=== PATIENT | male | born 1985 | race Caucasian/White ===

== ENCOUNTER 2016-12-23 22:46 | Emergency (ER) | payer OTHER ==
[~2016-12-23] VITALS: Ht 175.3 cm; Wt 77.3 kg
[~2016-12-23 22:46] MED LIST: CEPH500T PO; HYDR25CA PO; NOMED
[2016-12-23 22:54] VITALS: BP 160/100; PULSE 77; RESP 18; O2SAT 99
--- NOTE | 2016-12-23 23:11 | ED.REPORT ---
HPI-Dental/Mouth Prob Date of Service Dec 23, 2016 ED Provider: Mick Sin MD The patient is a 31 year old male who presents to the ED due to sever, intermittent, right, upper dental pain for the past month. He confirms warmth and pain throughout right face. He has not been able to sleep due to pain. He tried to get seen by [facility] with no luck. Pt denies fever. 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 Nursing Notes Stated Complaint: TOOTH PAIN Chief Complaint: Dental Nursing Notes Reviewed: Yes Allergies: Coded Allergies: Sulfa (Sulfonamide Antibiotics) (Verified Allergy, Unknown, 05/15/16) Scheduled Cephalexin (Cephalexin) 500 Mg Tablet 500 MG PO QID Scheduled PRN Hydroxyzine Pamoate (Vistaril) 25 Mg Capsule 25 MG PO TID PRN PRN For Anxiety or Agitation Miscellaneous Medications No Historical Medication (No Historical Medication) Ea General Time Seen by MD: 23:10 Chief Complaint Tooth pain Hx Obtained From: Patient Arrived By: Walk-in Onset Occurred: 3 days ago Symptom Duration: Since onset Location: : Tooth upper R molar Quality: Painful Radiation: : Face Severity: Current: Severe Past Medical History Past Medical History Notes: No PCP Past Medical History Crohn's (suspected, no formal diagnosis) IV drug use Reports: Asthma Past Surgical History Reports: Appendectomy Family History Noncontributory Smoking History Current Every Day Smoker Social History Alcohol Use: Denies alcohol use Drug Use: In recovery Other Social History: Local resident Ambulatory Status Independent Review of Systems Review of Systems Note: right side facial swelling Constitutional: Denies: Fever Ears / Nose / Throat: Reports: Toothache Complete sys rev & neg: except as marked. Physical Exam Initial Vital Signs Vital Signs (First) Date Time Temp Pulse Resp B/P Pulse Ox O2 Delivery O2 Flow Rate FiO2 12/23/16 22:54 37.1 77 18 160/100 99 Room Air Initial VS: Reviewed General/Constitutional: Well-developed, Well-nourished Respiratory: Breath sounds normal Cardiovascular: Regular rate & rhythm Lymphatic: No lymphadenopathy Skin: Warm, Dry ENT: Airway patent, Mucous membranes moist, Pharynx NL #3 is absent some swelling at the root but not palpable abscess no swelling under jaw Neck: Atraumatic, Supple, No swelling Head / Eyes: Normocephalic right sided facial swelling Procedures Dental Nerve Block Dental Nerve Block Note: 0.5% marcaine w/ epi Time: 23:24 Block Performed by: ED physician Consent / Setup / Site Prep: Informed consent provided, Hand hygiene observed Anesthesia: Inferior alveolar block Post-Procedure / Complications: No complications, Condition improved, Tolerated procedure well, Patient stable, No bleeding Re-Eval/Medical Decision Re-Evaluation/Progress : Time of Eval: 23:19 Patient Status: Mild relief, Pain improved Re-Evaluation/Progress Note: Pt rechecked. Inferior alveolar nerve block performed. Pt tolerated procedure well. Counseled Regarding: Diagnosis, Lab results, Need for follow-up, When/why to return to ED Discharge & Departure Primary Impression: Toothache Disposition: Home Discharge Condition All VS Reviewed: Yes Condition: Stable Additional Instructions: I am sending you home with Penicillin. Continue to use 800mg Ibuprofen 3 to 4 times a day to help with pain. Follow up with a dentist and primary care physician. If you begin to experience swelling under your tongue or any facial swelling, come back into the Emergency Department. I hope you feel better soon! Referrals: [facility] Scribe Attestation Portion of this note were transcribed by Georgina Vigil. I, Dr. Sin, personally performed the history, physical exam, and medical decision-making: I reviewed and confirmed the accuracy for the information in the transcribed note. Signed by: trudy Smith, 12/23/16 1238 copies to: [facility] Mick Sin MD Dec 23, 2016 23:11 Georgina Vigil Dec 23, 2016 23:18
[2016-12-24] MEDS ORDERED: _Penicillin VK 500 mg Tablet PO SCH (08:30)
== END 2016-12-24 00:25 | disposition home or self-care (01) ==
LOC: SED 22:46
DX: K08.89 Other specified disorders of teeth and supporting structures (principal); J45.909 Unspecified asthma, uncomplicated; F17.200 Nicotine dependence, unspecified, uncomplicated; F11.21 Opioid dependence, in remission; Z88.2 Allergy status to sulfonamides